=== PATIENT | male | born 1935 | race Caucasian/White ===

== ENCOUNTER → 2017-03-08 | Outpatient (CLI) | payer MEDICARE, BC ==
[~2017-03-08] MED LIST: ADULT LOW DOSE81 MG; AMARYL4 MG; ASPIRIN EC81 MG PO; CENTRUM SILVER1 EAC4; CENTRUM SILVER1 TA1 PO; CENTRUM SILVER1 TA3 PO; CLONIDINE0.2 MG PO; COL-RITE50 MG; COREG25 M1 PO; CRESTOR20 MG PO; DOCUSATE NA250 MG PO; FENOFIBRIC ACI135 MG PO; FERROUS SULFAT325 M2 PO; GLYBURIDE5 MG PO; HYDRALAZINE HCL25 M1; HYDRALAZINE HCL25 MG PO; LASIX 40MG. TAB40 MG PO; LISINOPRIL5 MG PO; MAG-OX 400MG T400 MG PO; METFORMIN1000 MG PO; MUPIROCIN2%; NAPROSYN 500MG500 MG PO; NORVASC 10MG. T10 MG PO; NORVASC 2.5MG.2.5 MG; OSTEO BI-FLEX1 TAB PO; OSTEO-BIFLEX PO; PLAVIX75 MG PO; SLOW RELEASE47.5 MG; TRAMADOL50 M1 PO; TRIAMCINOL30 GM/TUBE; TRILIPIX45 M1 PO; TRILIPIX45 MG
--- NOTE | 2017-03-09 00:33 | RADIOLOGY REPORT PS360 ---
ARTERIAL/BVQ-ILURICPEUMG-FUA HISTORY: CLAUDICATION Previous smoker. CAD. Rest pain both legs with color changes both legs. Hypertension diabetic. Vascular ulcers left leg. PVD. . Nonhealing ulcers left great toe TECHNIQUE: Segmental pressures obtained of both right and left leg. These are compared to brachial blood pressure to yield index at each level sampled including summary RAYMUNDO. The data sheets from the procedure are available in PACS FINDINGS Rest study only performed today No prior studies available for comparison. Blood pressures reported are in millimeters mercury. RIGHT LEG RAYMUNDO = 0.8. Brachial BP: 221 Thigh BP: Greater than 256/considered Noncompressible Calf BP: Greater than 256/considered Noncompressible Ankle PT: Greater than 256/considered Noncompressible Ankle DP : BP 173, = index 0.75 Digit =BP 92 with index 0.40 LEFT LEG RAYMUNDO = 0.8 Brachial BPD: 230 Thigh BP: Greater than 256/considered Noncompressibleible Calf BP: Greater than 256/considered Noncompressiblesible Ankle PT:BP 178 with index 0.77 Ankle DP: BP 16 with index 0.72 Digit = BP 86 with index 0.37 Diminished pulses & waveforms at the PT and Dp bilateral. IMPRESSION: Prominent baseline hypertension ( systolic 230 left brachial BP) Right RAYMUNDO 0.8 Left RAYMUNDO 0.8 Pulses & waveforms diminished bilateral at ankle Note: The unit reports over 256 bpm is noncompressible which typically reflect hardening of the arteries/ & calcific atherosclerotic disease, and in this case significant underlying hypertension contributes... . Greater than 256 systolic BP/noncompressible, encountered at bilateral calf and thigh. Also ankle right PT.
== END ==
LOC: RT 10:48
DX: L97.529 Non-pressure chronic ulcer of other part of left foot with unspecified severity (principal); E11.621 Type 2 diabetes mellitus with foot ulcer; I70.213 Atherosclerosis of native arteries of extremities with intermittent claudication, bilateral legs

== ENCOUNTER 2017-04-30 12:48 | Emergency (ER) | payer MEDICARE, BC ==
[~2017-04-30] VITALS: Ht 175.3 cm; Wt 104.3 kg
--- NOTE | 2017-04-30 15:03 | Urgent Treatment Center Report ---
History of Present Issue Date/Time Seen by Provider 04/30/17 8925 Visit Reason Pt arrived:Walked Presenting Problem:CUT HIS HAND WITH A INFORMATION SERVICES ASSISTANT, REQUIRES GLUING Location if Accident:Home Onset of symptoms date/time:04/30/1701/09/1230 or onset unknown for: Have you (or family members/close friends) recently traveled outside the [place]? N If Yes, where/when: Have you had exposure to infectious disease within the past month? TB? Other? Specify: Patient was opening a package at his house when the boxcutter slipped and caused small laceration on his pinky finger. Patient says that it just grazed his finger enough causing superficial wound. States that he is on blood thinners and he applied a bandage and came in to be checked ALLERGIES Coded Allergies: No Known Allergies (04/30/17) Home Medications Active Scripts Furosemide (Lasix 40MG) 40 MG PO DAILY #30 TAB Prov: 04/08/15 MAGNESIUM OXIDE (Magnesium Oxide) 400 MG PO DAILY #30 TAB Prov: 04/08/15 Ferrous Sulfate (Ferrous Sulfate 325MG) 325 MG PO DAILY #30 TAB Prov: 04/08/15 Reported Medications Glyburide 5 MG PO BIDD AMLODIPINE BESYLATE (Norvasc) 10 MG PO QHS Carvedilol (Coreg) 25 MG PO BID Hydralazine Hcl 25 MG PO TID Docusate Sodium 250 MG PO DAILY Clopidogrel Bisulfate (Plavix) 75 MG PO DAILY FENOFIBRIC ACID (CHOLINE) (Fenofibric Acid) 135 MG PO DAILY #90 ECC Multivitamin And [id number] (Centrum Silver) 1 TAB PO DAILY Chondroitin Sulfate/Glucosam (Osteo Bi-Flex) 1 TAB PO BID ASPIRIN ENTERIC COATED (Aspirin EC) 81 MG PO QHS Clonidine Hcl (Clonidine) 0.2 MG PO BID TRAMADOL HCL (Tramadol) 50 MG PO TIDP PRN PAIN Glimepiride (Amaryl) (Unknown Dose) DAILY FENOFIBRIC ACID (CHOLINE) (Trilipix) (Unknown Dose) DAILY MUPIROCIN (Mupirocin 2% OINT) (Unknown Dose) DAILY Ferrous Sulfate (Slow Release Iron) (Unknown Dose) DAILY Docusate Sodium (Col-Rite) (Unknown Dose) DAILY Multivit-Min/FA/Lycopen/Lutein (Centrum Silver Men Tablet) (Unknown Dose) DAILY Triamcinolone Acet 0.1% (Triamcinolone Acet 0.1% Cream 30GM) (Unknown Dose) DAILY Aspirin (Adult Low Dose Aspirin EC) (Unknown Dose) DAILY Hydralazine Hcl (Hydralazine 25MG Tab) (Unknown Dose) TID Amlodipine Besylate (Norvasc) (Unknown Dose) QHS History Medical History General CAD? Yes Angina: No FL: No Hypertension? Yes Hyperlipidemia? Yes CHF? Yes DVT? No PE? No COPD? No Asthma? No Anemia? Yes GERD? No Gastric ulcers? No GI Bleed? No Hernia? No Thyroid Problems? No Hypothyroidism? No CVA? No Seizures? No Diabetes? Yes Insulin Dependent: No Insulin Pump: No Home FSBS? No Renal Insuffiency? Yes UTI? No Stones? No BPH? No GB Disease: Yes Nephritic Syndrome? No Asplenia? No Hepatitis? No Sickle Cell Disease? No Arthritis? Yes Migraines? No Cataracts? Yes Glaucoma? No MRSA? No HIV? No TB? No Anxiety? No Depression? No Cancer? Yes Site: PROSTATE More? 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 '10 PROSTATE BX 07/29/11 Family History Family HX Diabetes No CAD No Hypertension Yes Hyperlipidemia Yes Cancer Yes TB No Social History Smoking Hx Smoker: Never Smoker Tobacco: No Type N/A Packs/day N/A Alcohol Alcohol: No Review of Systems All Other Systems Reviewed and Negative Comment small laceration of fat pad of right pinky finger Physical Exam Vital Signs Vital Signs Date Time Temp Pulse Resp B/P Pulse O2 O2 Flow FiO2 Ox Delivery Rate 04/30 1432 98.0 72 18 167/102 99 General Appearance normal appearance, no apparent distress Respiratory Status Yes: trachea midline, chest symmetrical, non tender chest. No: respiratory distress. Cardiovascular normal exam, regular rate/rhythm Extremities small superficial laceration to fat pad on right pinky finger Neurologic alert, normal exam, oriented x 3 Medical Decision Making LABS/Meds/Orders Pt receiving controlled substance in ED? No Results/Orders Current Medication Orders Sig/Shanell Start time Last Medication Dose Route Stop Time Status Admin Diphtheria/Pertussis/ 0.5 ML ONCE ONE 04/30 1445 DC 04/30 Tetanus Vacc IM 04/30 144 1453 Influenza Virus 0.5 ML ONCE ONE 04/30 1445 DC 04/30 Vaccine Quadrival IM 04/30 144 1453 Diphtheria/Pertussis/ 0 .STK-MED ONE 04/30 1441 DC Tetanus Vacc IM Progress UTC Progress Notes Comment wound area bleeding controlled with pressure and 4x4 wound edges approximated well with dermabond and steri stips bandage applied Procedures Laceration/Wound Repair Laceration/Wound Repair Risks/benefits discussed with pt/guardian? Yes Tetanus status up to date Wound Location finger(s) Wound Length (cm) 2 Wound's Depth, Shape superficial, sucutaneous tissue Wound Explored clean Risk of retained FB explained to pt/guardian? Yes Irrigated w/ Saline (ccs) 20 Wound Prep Betadine, Hibiclens, Saline Wound Debrided none Wound Repaired With Steri-strips, Dermabond Sterile Dressing Applied Yes Departure Departure Time of Disposition 1459 Disposition DC Home or Self Care(routine) Clinical Impression Primary Impression: Laceration of finger Qualifiers: Encounter type: initial encounter Finger: little finger Damage to nail status: without damage Foreign body presence: without foreign body Laterality: right Qualified Code: S61.216A - Laceration without foreign body of right little finger without damage to nail, initial encounter Condition STABLE Patient Instructions DI for Laceration Repair With Dermabond, Skin Wound Additional Instructions Keep area clean and dry DO not remove steri strips allow to fall off FOllow up with family doctor if any sign of infection such as redness swelling etc Return if needed Discharge Counseling Counseled pt/family regarding diagnosis, home care, follow up needs at 1508
[2017-04-30 15:08] VITALS: BP 167/102
--- OUTSIDE RECORDS SUMMARY | 2017-05-07 04:53 | External Medical Summary Rpt | CCD ---
Author Author [employer] Organization [employer] Address Unknown Phone Unavailable Purpose Continuity of Care Document - through 2016
--- OUTSIDE RECORDS SUMMARY | 2017-05-07 04:53 | External Medical Summary Rpt ---
Author Author ADÁN Tawny, [employer] Organization [employer] Address Unknown Phone Unavailable Results Prostate specific Ag [Mass/volume] in Serum or Plasma Observa Value Referen Units Interpr Notes Date tion ce etation Range Prostate 0.0 - 4.0 ng/mL High No Sep 11 specific informati 2017 1:40 Ag on in PM [Mass/vol source ume] in data Serum or Plasma Prostate specific Ag [Mass/volume] in Cerebral spinal fluid Observa Value Referen Units Interpr Notes Date tion ce etation Range Prostate 0.0 - 4.0 ng/mL High FREE PSA Sep 11 specific SUGGESTED 2016 1:40 Ag TO AID PM [Mass/vol DIAGNOSIS ume] in Cerebral spinal fluid Prostate specific Ag [Mass/volume] in Cerebral spinal fluid Observa Value Referen Units Interpr Notes Date tion ce etation Range Prostate 0.0 - 4.0 ng/mL High FREE PSA Sep 11 specific SUGGESTED 2016 1:40 Ag TO AID PM [Mass/vol DIAGNOSIS ume] in Cerebral spinal fluid Calcium.ionized [Mass/volume] in Serum or Plasma by Ion-selective membrane electrode (ISE) Observa Value Referen Units Interpr Notes Date tion ce etation Range Calcium.i 4.5 - 5.6 mg/dL High Performed Feb 22 onized at: CB 2017 [Mass/vol - [facility] 10:28 AM ume] in Serum or [place] [address] Plasma by 0 [facility] membrane [id number] electrode Lab (ISE) Director: Jorge Dunn PhD, Phone: [phone] Iron and TIBC Observa Value Referen Units Interpr Notes Date tion ce etation Range Iron 250 - 450 ug/dL No No Feb 22 binding informati informati 2017 capacity on in on in 10:28 AM [Mass/vol source source ume] in data data Serum or Plasma Iron 111 - 343 ug/dL No No Feb 22 binding informati informati 2017 capacity. on in on in 10:28 AM unsaturat source source ed data data [Mass/vol ume] in Serum or Plasma Iron 38 - 169 ug/dL No No Feb 22 [Mass/vol informati informati 2017 ume] in on in on in 10:28 AM Serum or source source Plasma data data Iron 15 - 55 % No No Feb 22 saturatio informati informati 2017 n [Mass] on in on in 10:28 AM in Serum source source or Plasma data data 25-Hydroxyvitamin D [Mass/volume] in Serum or Plasma Observa Value Referen Units Interpr Notes Date tion ce etation Range 25-Hydrox 30.0 - ng/mL Low Vitamin D Feb 22 yvitamin 100.0 2017 D deficienc 10:28 AM [Mass/vol y has ume] in been Serum or defined Plasma by the [place] [facility] e and an Endocrine Society practice guideline as alevel of serum 25-OH vitamin D less than 20 ng/mL (1,2).The Endocrine Society went on to further define vitamin Dinsuffic iency as a level between 21 and 29 ng/mL (2).1. IOM (Institut e of Medicine) . 2010. Dietary reference intakes for calcium and D. [place]: The[employer]ation al Academies Press.2. Amie MF, Arpita NC, Marianna Ledezma ROBLES, et al.Evalua tion, treatment , and preventio n of vitamin Ddeficien cy: an Endocrine Society clinical practiceg uideline. JCEM. 2010; 96(7):191 1-30.Perf ormed at: CB - [facility] [id number] Labor Delivery Rn: Jorge Dunn PhD, Phone: [phone] Ferritin [Mass/volume] in Serum or Plasma Observa Value Referen Units Interpr Notes Date tion ce etation Range Ferritin 8 - 388 ng/mL No No Feb 22 [Mass/vol informati informati 2017 ume] in on in on in 10:28 AM Serum or source source Plasma data data Parathyrin.intact [Mass/volume] in Serum or Plasma Observa Value Referen Units Interpr Notes Date tion ce etation Range Parathyri 15 - 65 pg/mL No Performed Feb 22 n.intact informati at: CB 2017 [Mass/vol on in - [facility] 10:28 AM ume] in source Serum or data [place] [address] Plasma 0 [place], [place] [id number] Labor Delivery Rn: Jorge Dunn PhD, Phone: [phone] Renal function 2000 panel in Serum or Plasma Observa Value Referen Units Interpr Notes Date tion ce etation Range Albumin 3.4 - 5.0 gm/dL Normal No Feb 22 [Mass/vol informati 2016 ume] in on in 10:28 AM Serum or source Plasma data Urea 7 - 18 mg/dL High No Feb 22 nitrogen informati 2016 [Mass/vol on in 10:28 AM ume] in source Serum or data Plasma Calcium 8.5 - mg/dL Normal No Feb 22 [Mass/vol 10.1 informati 2016 ume] in on in 10:28 AM Serum or source Plasma data Chloride 98 - 107 mmoL/L Normal No Feb 22 [Moles/vo informati 2016 lume] in on in 10:28 AM Serum or source Plasma data Carbon 21.0 - mmoL/L Normal No Feb 22 dioxide, 32.0 informati 2017 total on in 10:28 AM [Moles/vo source lume] in data Serum or Plasma Creatinin 0.70 - mg/dL High No Feb 22 e 1.30 informati 2016 [Mass/vol on in 10:28 AM ume] in source Serum or data Plasma Estimated >60 ML/MIN No REFERENCE Feb 22 informati RANGE: 2017 glomerula on in >60 10:28 AM r source ML/MIN/1. filtratio data 73 SQUARE n rate METERSIf (GF this patient is -A merican, then multiply theresult by 1.210. Glucose 74 - 106 mg/dL High No Feb 22 [Mass/vol informati 2017 ume] in on in 10:28 AM Serum or source Plasma data Potassium 3.5 - 5.1 mmoL/L Normal No Feb 22 informati 2016 [Moles/vo on in 10:28 AM lume] in source Serum or data Plasma Sodium 136 - 145 mmoL/L Normal No Feb 22 [Moles/vo informati 2017 lume] in on in 10:28 AM Serum or source Plasma data Phosphate 2.4 - 4.9 mg/dL Normal No Feb 22 informati 2016 [Moles/vo on in 10:28 AM lume] in source Unspecifi data ed specimen CBC W Auto Differential panel in Blood Observa Value Referen Units Interpr Notes Date tion ce etation Range Basophils 0 - 0.2 K/MM3 Normal No Feb 222016 [#/volume on in 10:28 AM ] in source Blood by data Automated count Basophils 0.1 - 2.0 % Normal No Feb 22 inform2016 leukocyte on in 10:28 AM s in source Blood by data Automated count Eosinophi 0.0 - 0.4 K/mm3 Normal No Feb 22 ls informati 2016 [#/volume on in 10:28 AM ] in source Blood by data Automated count Eosinophi 0.1 - % Normal No Feb 22 ls/100 12.0 inform2016 leukocyte on in 10:28 AM s in source Blood by data Automated count Granulocy 1.3 - 8.0 K/mm3 Normal No Feb 22 gaby 2016 [#/volume on in 10:28 AM ] in source Blood by data Automated count Granulocy 37.0 - % Normal No Feb 22 gaby/100 80.0 2016 leukocyte on in 10:28 AM s in source Blood by data Automated count Hematocri 42.0 - % Low No Feb 22 t [Volume 52.0 informati 2016 on in 10:28 AM Fraction] source of Blood data Hemoglobi 14.1 - g/dL Low No Feb 22 n 18.0 inform2016 [Mass/vol on in 10:28 AM ume] in source Blood data Lymphocyt 0.7 - 4.5 K/mm3 Normal No Feb 22 es informati 2016 [#/volume on in 10:28 AM ] in source Unspecifi data ed specimen by Automated count Lymphocyt 10 - 50 % Normal No Feb 22 es inform2016 [#/volume on in 10:28 AM ] in source Unspecifi data ed specimen by Automated count Erythrocy 27 - 31.2 pg Normal No Feb 22 te mean 2016 corpuscul on in 10:28 AM ar source hemoglobi data n [Entitic mass] Erythrocy 31.8 - g/dl Normal No Feb 22 te mean 35.4 2016 corpuscul on in 10:28 AM ar source hemoglobi data n concentra tion [Mass/vol ume] by Automated count Erythrocy 82.2 - fl Normal No Feb 22 te mean 97.8 inform2016 corpuscul on in 10:28 AM ar volume source [Entitic data volume] by Automated count Monocytes 0.1 - 1.0 K/mm3 Normal No Feb 22 inform2016 [#/volume on in 10:28 AM ] in source Blood by data Automated count Monocytes 1.7 - 9.3 % Normal No Feb 22 /100 informati 2017 leukocyte on in 10:28 AM s in source Blood by data Automated count Platelet 7.4 - fl Normal No Feb 22 mean 10.4 informati 2016 volume on in 10:28 AM [Entitic source volume] data in Blood by Automated count Platelets 142 - 424 K/mm3 Normal No Feb 22 informati 2016 [#/volume on in 10:28 AM ] in source Blood data Erythrocy 4.6 - 6.2 M/mm3 Low No Feb 22 gaby informati 2016 [#/volume on in 10:28 AM ] in source Amniotic data fluid Erythrocy 11.5 - % Normal No Feb 22 te 17.5 informati 2016 distribut on in 10:28 AM ion width source [Entitic data volume] by Automated count Leukocyte 4.8 - K/MM3 Normal No Feb 22 s 10.8 informati 2016 [#/volume on in 10:28 AM ] in source Blood data Prostate specific Ag [Mass/volume] in Serum or Plasma Observa Value Referen Units Interpr Notes Date tion ce etation Range Prostate 0.0 - 4.0 ng/mL High No Jan 13 specific informati 2017 8:05 Ag on in AM [Mass/vol source ume] in data Serum or Plasma Hemoglobin A1c in Blood Observa Value Referen Units Interpr Notes Date tion ce etation Range Hemoglo 7.4 0.0 - % High < 6% Jan 13 bin A1c 7.0 NON-MARILYN 2017 in BETIC 8:04 AM Blood LEVEL< 7% CONTROL LED DIABETI C LEVEL> 8% POORLY CONTROL LED DIABETI C LEVEL Comprehensive metabolic 2000 panel in Serum or Plasma Observa Value Referen Units Interpr Notes Date tion ce etation Range Albumin/G 1.1 - 1.8 No Normal No Jan 13 lobulin informati informati 2017 8:04 [Mass on in on in AM ratio] in source source Serum or data data Plasma Albumin 3.4 - 5.0 gm/dL Normal No Jan 13 [Mass/vol informati 2017 8:04 ume] in on in AM Serum or source Plasma data Alkaline 46 - 116 U/L Normal No Jan 13 phosphata informati 2017 8:04 se on in AM [Enzymati source c data activity/ volume] in Serum or Plasma Bilirubin 0.2 - 1.0 mg/dL Normal No Jan 13 .total informati 2016 8:04 [Mass/vol on in AM ume] in source Serum or data Plasma Urea 7 - 18 mg/dL High No Jan 13 nitrogen informati 2016 8:04 [Mass/vol on in AM ume] in source Serum or data Plasma Calcium 8.5 - mg/dL Normal No Jan 13 [Mass/vol 10.1 informati 2016 8:04 ume] in on in AM Serum or source Plasma data Chloride 98 - 107 mmoL/L Normal No Jan 13 [Moles/vo informati 2016 8:04 lume] in on in AM Serum or source Plasma data Carbon 21.0 - mmoL/L Normal No Jan 13 dioxide, 32.0 informati 2016 8:04 total on in AM [Moles/vo source lume] in data Serum or Plasma Creatinin 0.70 - mg/dL High No Jan 13 e 1.30 informati 2016 8:04 [Mass/vol on in AM ume] in source Serum or data Plasma Estimated >60 ML/MIN No REFERENCE Jan 13 informati RANGE: 2017 8:04 glomerula on in >60 AM r source ML/MIN/1. filtratio data 73 SQUARE n rate METERSIf (GF this patient is -A merican, then multiply theresult by 1.210. Globulin 1.3 - 3.2 gm/dL High No Jan 13 [Mass/vol informati 2016 8:04 ume] in on in AM Serum source data Glucose 74 - 106 mg/dL Low No Jan 13 [Mass/vol informati 2016 8:04 ume] in on in AM Serum or source Plasma data Potassium 3.5 - 5.1 mmoL/L Normal No Jan 13 informati 2017 8:04 [Moles/vo on in AM lume] in source Serum or data Plasma Sodium 136 - 145 mmoL/L Normal No Jan 13 [Moles/vo informati 2016 8:04 lume] in on in AM Serum or source Plasma data Aspartate 15 - 37 U/L Low No Jan 13 informati 2016 8:04 aminotran on in AM sferase source [Enzymati data c activity/ volume] in Serum or Plasma Alanine 12 - 78 U/L Normal No Jan 13 aminotran informati 2016 8:04 sferase on in AM [Enzymati source c data activity/ volume] in Serum or Plasma Protein 6.4 - 8.2 gm/dL Normal No Jan 13 [Mass/vol informati 2016 8:04 ume] in on in AM Serum or source Plasma data Lipid 1996 panel in Serum or Plasma Observa Value Referen Units Interpr Notes Date tion ce etation Range Cholester < 200 mg/dL No No Jan 13 ol informati informati 2016 8:04 [Moles/vo on in on in AM lume] in source source Unspecifi data data ed specimen Cholester 40 - 60 MG/DL Low No Jan 13 ol in HDL informati 2016 8:04 on in AM [Mass/vol source ume] in data Serum or Plasma Cholester 0 - 130 mg/dL Normal No Jan 13 ol in LDL informati 2016 8:04 on in AM [Mass/vol source ume] in data Serum or Plasma by david on Triglycer 30 - 200 mg/dL Normal No Jan 13 ray informati 2016 8:04 [Moles/vo on in AM lume] in source Serum or data Plasma Cholester 0 - 40 No Normal No Jan 13 ol in informati informati 2016 8:04 VLDL on in on in AM [Mass/vol source source ume] in data data Serum or Plasma
--- OUTSIDE RECORDS SUMMARY | 2017-05-07 04:53 | External Medical Summary Rpt ---
[...] [facility] 10:28 AM ume] in Serum or [place] [address] Plasma by 0 [facility] membrane [id number] electrode Lab (ISE) Director: Jorge Dunn PhD, Phone: [phone] Iron and TIBC Observa Value Referen [...] been Serum or defined Plasma by the [place] [facility] e and an Endocrine Society practice guideline [...] 2010; 96(7):191 1-30.Perf ormed at: CB - [facility] [id number] Recep: Jorge Dunn PhD, Phone: [phone] Ferritin [Mass/volume] in Serum or Plasma [...] AM ume] in source Serum or data [place] [address] Plasma 0 [place], [place] [id number] Recep: Jorge Dunn PhD, Phone: [phone] Renal function 2000 panel in Serum [...]
--- OUTSIDE RECORDS SUMMARY | 2017-05-07 04:53 | External Medical Summary Rpt | CCD ---
Demographics Preferred Language Wolof Marital Status Unknown Yazdanism Affiliation Unknown Race Unknown Ethnic Group Unknown Author Author , ADÁN MCCAIN Address Unknown Phone Immunization No patient found.
--- OUTSIDE RECORDS SUMMARY | 2017-05-07 04:53 | External Medical Summary Rpt | CCD ---
Author Author , STEPHANIE MCCAIN Address Unknown Phone [email or web address] Purpose Continuity of Care Document - 01-13-2017 through 2016 Results Labs Lab Lab Date Result Refere Interp Status Commen Order Detail nces retati t Range on Hemoglobin A1c in Blood (01-13-2017 08:04) Hemoglo 7.4 % 0.0% High complet bin A1c 017 - ed in 08:04 7.0% Blood
--- OUTSIDE RECORDS SUMMARY | 2017-05-07 04:53 | External Medical Summary Rpt | CCD ---
Author Author , STEPHANIE MCCAIN Address Unknown Phone [email or web address] Purpose Continuity of Care Document - 01-13-2017 through 2016 Results Labs Lab Lab Date Result Refere Interp Status Commen Order Detail nces retati t Range on Hemoglobin A1c in Blood (01-13-2017 08:04) Hemoglo 7.4 % 0.0% High complet bin A1c 017 - ed in 08:04 7.0% Blood
--- OUTSIDE RECORDS SUMMARY | 2017-05-07 04:53 | External Medical Summary Rpt | CCD ---
Demographics Preferred Language Spanish Marital Status Unknown Sabianism Affiliation Unknown Race Unknown Ethnic Group Unknown Author Author , ADÁN MCCAIN Address Unknown Phone Immunization No patient found.
== END 2017-04-30 15:08 | disposition home or self-care (01) ==
LOC: ER 12:48 → UTC 13:04 → ER 13:04 → UTC 15:08
DX: S61.216A Laceration without foreign body of right little finger without damage to nail, initial encounter (principal); W26.0XXA Contact with knife, initial encounter; Y93.9 Activity, unspecified; Z23 Encounter for immunization; I25.10 Atherosclerotic heart disease of native coronary artery without angina pectoris; I50.9 Heart failure, unspecified; Z95.1 Presence of aortocoronary bypass graft; E11.51 Type 2 diabetes mellitus with diabetic peripheral angiopathy without gangrene; E78.5 Hyperlipidemia, unspecified; Z85.46 Personal history of malignant neoplasm of prostate; I13.0 Hypertensive heart and chronic kidney disease with heart failure and stage 1 through stage 4 chronic kidney disease, or unspecified chronic kidney disease; N18.9 Chronic kidney disease, unspecified; Z79.4 Long term (current) use of insulin; E11.22 Type 2 diabetes mellitus with diabetic chronic kidney disease; Z79.02 Long term (current) use of antithrombotics/antiplatelets; Z79.82 Long term (current) use of aspirin; Z79.891 Long term (current) use of opiate analgesic; Z79.899 Other long term (current) drug therapy; Y92.009 Unspecified place in unspecified non-institutional (private) residence as the place of occurrence of the external cause

== ENCOUNTER → 2017-06-14 | Outpatient (CLI) | payer MEDICARE, BC | LOC: LAB 13:52 | DX: E11.621 Type 2 diabetes mellitus with foot ulcer (principal); L97.529 Non-pressure chronic ulcer of other part of left foot with unspecified severity ==

== ENCOUNTER → 2017-06-16 | Outpatient (CLI) | payer MEDICARE, BC ==
--- NOTE | 2017-06-16 14:06 | RADIOLOGY REPORT PS360 ---
FOOT-LT-3 VIEWS HISTORY: Ulcer on the bottom of the foot, cellulitis, pain and swelling LT FOOT ULCER BOTTOM OF GREAT TOE AREA, CELLULITIS ORDERING PHYSICIAN: Celio Chiu MD PATIENT AGE: 81 years COMPARISON: Bone scan of the same day FINDINGS: No fracture or dislocation. No lytic or blastic change. There is normal mineralization.. The joint spaces are well-preserved. No significant degenerative/arthritic changes. No erosive changes evident. There is generalized vascular calcification. Bone scan shows increased activity at the great toe region on the left all 3 phases suspicious for osteomyelitis of the distal phalanx. No definite bony erosive changes are evident at this area. Bandage artifact overlies the great toe. IMPRESSION: No erosive changes evident. No acute radiographic findings
--- NOTE | 2017-06-16 14:10 | RADIOLOGY REPORT PS360 ---
NUC BONE SCAN (W/FLOW) 3PHASE HISTORY: Left foot pain and swelling, cellulitis, ulceration CHRONIC ULCER OF LEFT FOOT,CELLULITIS OF TOE,FOOT ULCER ORDERING PHYSICIAN: Celio Chiu MD PATIENT AGE: 81 years COMPARISON: Radiograph of the same day DOSE: 25.7 mCi technetium MDP IV FINDINGS: Blood flow images: Slight increase activity to the left foot more intense along the great toe of the left foot. Blood pool images: Overall slight increased activity in the left foot more intense in the great toe at the phalangeal area. Delayed images: There is slight focal increased activity involving the great toe distally. Increased activity is present in the mid foot as well. IMPRESSION: Abnormal three-phase bone scan with increased activity to the great toe on all 3 phases consistent with osteomyelitis of the great toe.
== END ==
LOC: RAD 08:55
DX: L97.529 Non-pressure chronic ulcer of other part of left foot with unspecified severity (principal); L03.032 Cellulitis of left toe; E78.5 Hyperlipidemia, unspecified
CPT/HCPCS: A9503

== ENCOUNTER → 2017-06-21 | Outpatient (CLI) | payer MEDICARE, BC ==
--- NOTE | 2017-06-21 11:51 | RADIOLOGY REPORT PS360 ---
ANKLE-LT-3 VIEWS HISTORY: CHRONIC LT ANKLE PAIN ORDERING PHYSICIAN: CLARISSA GARDNER MD PATIENT AGE: 81 years COMPARISON: None FINDINGS: No acute fracture or dislocation. The talar dome has an unremarkable appearance. There are mild adjacent changes of the talonavicular joint. Lateral view is somewhat rotated. There is generalized vascular calcification. IMPRESSION: No acute finding. 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
== END ==
LOC: RAD 10:30
DX: M25.572 Pain in left ankle and joints of left foot (principal)

== ENCOUNTER → 2017-06-25 | Outpatient (CLI) | payer MEDICARE, BC ==
--- NOTE | 2017-06-29 08:40 | RADIOLOGY REPORT PS360 ---
MRI-LOW EXT OTH THN JNT W/O-LT MRI of left forefoot Ordering Physician: CLARISSA GARDNER MD Patient Age: 81 years: Male HISTORY: OSTEOMYELITIS OF LEFT FOOT Ulcer open sore plantar aspect right toe symptoms for years worse past 3 weeks patient diabetic painful TECHNIQUE Multiplanar multisequence imaging imaging performed on 1.5 T MR no contrast COMPARISON :Plain films great toe 03/04/2017 FINDINGS . thinning of soft tissues along the plantar slight medial aspect of the great toe reflecting the clinical ulcer here.. This appears to be most evident beneath the proximal phalanx, IP joint and base of distal phalanx great toe these MR images. I am surprisingly do not see soft tissue edema and inflammation about area of soft tissue thinning/apparent ulcer but this may reflect its chronic nature With this there is a small area of subtle increased signal the medial/plantar aspect of the head of proximal phalanx at IP joint.. Unimpressive but could reflect a very subtle early area of osteomyelitis vs reactive bone change from arthritis or some other process.. The fact that the ulcer seems to extend towards this area; and that the cortex less well-defined cortex here on sagittal views ( sagittal slice 7, 6) appearance of raise concern of possible tiny subtle early focus of developing osteomyelitis.. Findings here are not definitive but are suspect.. The flexor tendon of great toe appears intact just lateral to this area. The other toes visualized show normal osseous signal. Mild diffuse soft tissue edema noted throughout the forefoot evident and extends into the other toes toes. Metatarsals are unremarkable IMPRESSION: Soft tissue defect/ulcer evident along the plantar, medial aspect of great toe Subtle increased bone signal head proximal phalanx great toe noted just deep to this ulcer region. -. Although osseous findings here not definitive and somewhat nonspecific, with given history and appearance would be suspect for possible minimal early osteomyelitis. Clinical correlation and follow-up required. (Follow-up coned-down radiograph great toe suggested as well to include BOTH obliques) Suggestion of mild Diffuse soft tissue edema and swelling throughout forefoot and into toes
== END ==
LOC: RAD 14:19
DX: M86.9 Osteomyelitis, unspecified (principal)